=== PATIENT | female | born 1975 | race Two or more races ===

== ENCOUNTER 2023-09-28 17:58 | Emergency (ER) | payer OTHER ==
[~2023-09-28] VITALS: Ht 170.2 cm; Wt 66.7 kg
[2023-09-28] MEDS ORDERED: LASIX40 MG (18:13)
[2023-09-28] MEDS ORDERED: NAPROXEN250 MG (18:14)
[2023-09-28 20:43] LABS: HEMATOCRIT 33.9 % (36.0-45.00); HEMOGLOBIN 11.3 g/dL (12.0-15.00); MEAN CELL VOLUME 81.9 fL (80.00-100.00); MEAN CORPUSCULAR HEMOGLOBIN 27.3 pg (27.00-32.0); MEAN CORPUSCULAR HGB CONC 33.4 g/dl (32.0-36.0); PLATELET COUNT 208 K/uL (150-450); RED BLOOD COUNT 4.14 M/uL (4.00-6.00); RED CELL DISTRIBUTION WIDTH 16.6 % (11.5-14.5)
[2023-09-28 21:28] LABS: ALBUMIN 4.4 gm/dL (3.4-5.0); BILIRUBIN TOTAL 0.67 mg/dL (0.3-1.2); CALCIUM 9.1 mg/dL (8.5-10.1); CREATININE SERUM 0.91 mg/dL (0.55-1.02); GFR 66.55; GLOBULINA 3.6 G/DL (2.4-3.5); POTASSIUM 3.55 mEq/L (3.5-5.1)
[2023-09-28 21:42] LABS: URINE APPEARANCE Cloudy; URINE BILIRRUBIN Small (NEGATIVE); URINE BLOOD Negative; URINE COLOR Dark Yellow; URINE GLUCOSE Negative (NEGATIVE); URINE LEUKOCYTE Trace; URINE NITRATE Negative; URINE PROTEIN Trace (NEGATIVE); URINE UROBILINOGEN 0.2 E.U./dl
[2023-09-28 21:55] LABS: URINE EPITHELIAL CELLS 191.7 uL (0.0-38.8); URINE RBC 28.3 uL (0.0-20.8); URINE WBC 50.5 uL (0.0-23.2)
[2023-09-28 22:16] LABS: ABG PH 7.433 (7.35-7.45); ABG PO2 112.6 mmHg (80-100); ABG pCO2 27.5 mmHg (35-45); BASE EXCESS -4.6 mmol/l; SaO2 98.5 %; Tco2 18.8 mmol/l; o2 21 %
[2023-09-28 22:17] LABS: allen test SATISFACTORY; puncture site RADIAL LEFT
[2023-09-28 22:23] LABS: URINE BACTERIA > 9821.5 uL (0.0-1933)
[2023-09-28 22:25] LABS: URINE MUCUS MODERATE
[2023-09-28] MEDS ORDERED: MACROBID 100 M100 MG PO (22:42)
== END 2023-09-28 22:48 ==
LOC: ER 17:59
PROVIDERS: Nurse Practitioner Family
DX: N39.0 Urinary tract infection, site not specified (principal); R53.81 Other malaise; Z20.822 Contact with and (suspected) exposure to COVID-19